=== PATIENT | male | born 2005 | race Hispanic/Latino ===

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

== ENCOUNTER 2024-12-11 23:48 | Emergency (ER) | payer SELFPAY ==
[~2024-12-11] VITALS: Ht 185.4 cm; Wt 71.7 kg
--- NOTE | 2024-12-11 23:59 | NUR ---
PT CARE ASSUMED AT THIS TIME
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
[2024-12-12] MEDS ORDERED: IBUP-2077 PO (00:30)
[2024-12-12] MEDS ORDERED: [UNRECOGNIZED DRUG - CODE] OP (00:30)
--- NOTE | 2024-12-12 00:38 | NUR ---
VISUAL ACUITY TEST 20/25 RIGHT EYE 20/30 LEFT EYE 20/20 BOTH EYEYS ALONZO CALDERÓN MADED AWARE
[2024-12-12] MEDS: TETRACAINE HCL 0.5% 4 ML OPHTH SOLN OP ONE (00:42)
[2024-12-12 00:49] VITALS: BP 122/70; PULSE 80; RESP 16; TEMP 98.1; O2SAT 100
== END 2024-12-12 00:51 | disposition home or self-care (01) ==
LOC: EDH 23:48
DX: H16.131 Photokeratitis, right eye (principal); Z79.899 Other long term (current) drug therapy
CPT/HCPCS: 99283